=== PATIENT | male | born 1960 | race African-American/Black ===

== ENCOUNTER 2019-03-25 15:35 | Inpatient (IN) | payer MEDICAID, OTHER ==
[~2019-03-25] VITALS: Ht 165.1 cm; Wt 82.6 kg
[2019-03-25] MEDS ORDERED: SODIUM CHLORIDE 0.9% 1,000 ML IV ONE (16:31)
[2019-03-25] MEDS ORDERED: PANTOPRAZOLE SODIUM 40 MG/VIAL IV STA (16:31)
[2019-03-25 17:09] LABS: BASOPHILS % 0.8 % (0.0-2.0); EOSINOPHILS % 0.1 % (0.0-5.0); HEMATOCRIT. 31.1 % (42.0-52.0); LYMPHOCYTES % 26.8 % (20.0-50.0); MEAN CORPUSCULAR HEMOGLOBIN 39.3 pg (28.0-32.0); MEAN CORPUSCULAR VOLUME 111.6 fL (80.0-94.0); MEAN PLATELET VOLUME 10.6 fl (7.4-10.4); MONOCYTES % 11.8 % (2.0-8.0); NEUTROPHILS % 60.5 % (40.0-76.0); PLATELET 69 x1000/uL (130-400); RED BLOOD CELL COUNT 2.79 mill/uL (4.7-6.1)
[2019-03-25 17:11] LABS: CHLORIDE 108 mEq/L (98-107)
[2019-03-25 17:43] LABS: INR 1.4; PROTHROMBIN TIME 15.4 sec (9.6-11.0)
[2019-03-25 17:46] LABS: PLATELET ESTIMATE MARKEDLY DECREASED
[2019-03-25] MEDS ORDERED: IPRATROPIUM/ALBUTEROL 0.5-3(2.5)MG/3ML NEB HHN PRN (19:45)
[2019-03-25] MEDS ORDERED: CLONIDINE 0.1MG TABLET PO PRN (19:45)
[2019-03-25] MEDS ORDERED: DIPHENHYDRAMINE 50MG/ML VIAL IV PRN (19:45)
[2019-03-25 20:16] LABS: PHOSPHORUS 2.6 mg/dL (2.5-4.9)
[2019-03-25] MEDS: ONDANSETRON HCL 4MG/2ML INJ IV PRN (22:37)
[2019-03-25 22:41] VITALS: BP 130/77
[2019-03-25] MEDS ORDERED: SODIUM CHLORIDE 0.9% 1,000 ML IV SCH (23:00)
[2019-03-26] VITALS (17 sets, daily range): BP systolic 93–130; BP diastolic 55–79
[2019-03-26] MEDS ORDERED: OMEP20TA2 PO (00:04)
[2019-03-26] MEDS ORDERED: METO-539 PO (00:04)
[2019-03-26] MEDS ORDERED: HYDR-2510 MT (00:04)
[2019-03-26 00:18] LABS: HEMATOCRIT 25.4 % (42.0-52.0); HEMOGLOBIN 8.9 g/dL (14.0-18.0); MEAN CORPUSCULAR HEMOGLOBIN 37.4 pg (28.0-32.0); MEAN CORPUSCULAR VOLUME 107.4 fL (80.0-94.0); RED BLOOD CELL COUNT 2.37 mill/uL (4.7-6.1); RED CELL DISTRIBUTION WIDTH 19.8 % (11.6-14.6)
[2019-03-26 00:21] LABS: PLATELET 50 x1000/uL (130-400)
[2019-03-26] MEDS ORDERED: DEXTROSE 50% WATER 50ML SYRINGE IV PRN ×2 (02:45)
[2019-03-26 05:27] LABS: HEMATOCRIT. 22.9 % (42.0-52.0); HEMOGLOBIN. 8.1 g/dL (14.0-18.0); MEAN CORPUSCULAR HEMOGLOBIN 37.6 pg (28.0-32.0); MEAN CORPUSCULAR VOLUME 105.7 fL (80.0-94.0); MEAN PLATELET VOLUME 10.4 fl (7.4-10.4); PLATELET 53 x1000/uL (130-400); RED BLOOD CELL COUNT 2.17 mill/uL (4.7-6.1); RED CELL DISTRIBUTION WIDTH 20.1 % (11.6-14.6)
[2019-03-26 05:53] LABS: CHLORIDE 116 mEq/L (98-107)
[2019-03-26 06:00] LABS: HDL CHOLESTEROL 44 mg/dL (40-59); LDL CHOLESTEROL 40 mg/dL (5-100)
[2019-03-26] MEDS: ONDANSETRON HCL 4MG/2ML INJ IV PRN ×2 (07:02→21:41)
[2019-03-26] MEDS: PANTOPRAZOLE 80 MG in SODIUM CHLORIDE 0.9% 100 ML IV SCH ×2 (07:02→15:52)
[2019-03-26] MEDS: BLOOD SUGAR DIAGNOSTIC STRIP TEST SCH ×4 (07:20→21:00)
[2019-03-26] MEDS: INSULIN LISPRO 100 UNITS/ML SUBCUT SCH ×4 (07:20→21:00)
[2019-03-26] MEDS: SODIUM CHLORIDE 0.45% 1,000 ML IV SCH ×2 (11:25→20:54)
[2019-03-26 16:43] LABS: HEPATITIS B SURFACE ANTIGEN NEGATIVE
[2019-03-26 17:13] LABS: HEPATITIS A AB IGM NEGATIVE (NEGATIVE)
[2019-03-26 17:58] LABS: PLATELET ESTIMATE MARKEDLY DECREASED
[2019-03-26] MEDS: VANCOMYCIN HCL 1000 MG/20 ML ORAL PO SCH ×2 (18:15→23:28)
[2019-03-26 18:29] LABS: HEMATOCRIT. 22.2 % (42.0-52.0); HEMOGLOBIN. 7.7 g/dL (14.0-18.0); MEAN CORPUSCULAR HEMOGLOBIN 36.5 pg (28.0-32.0); MEAN CORPUSCULAR VOLUME 105.6 fL (80.0-94.0); MEAN PLATELET VOLUME 9.7 fl (7.4-10.4); PLATELET 89 x1000/uL (130-400); RED BLOOD CELL COUNT 2.11 mill/uL (4.7-6.1); RED CELL DISTRIBUTION WIDTH 19.6 % (11.6-14.6)
[2019-03-26 19:45] LABS: PLATELET ESTIMATE DECREASED
[2019-03-26 23:25] LABS: HEMATOCRIT. 21.7 % (42.0-52.0); HEMOGLOBIN. 7.5 g/dL (14.0-18.0); MEAN CORPUSCULAR VOLUME 106.8 fL (80.0-94.0); MEAN PLATELET VOLUME 10.2 fl (7.4-10.4); PLATELET 83 x1000/uL (130-400); RED BLOOD CELL COUNT 2.03 mill/uL (4.7-6.1); RED CELL DISTRIBUTION WIDTH 20.2 % (11.6-14.6)
[2019-03-27] VITALS (16 sets, daily range): BP systolic 93–148; BP diastolic 52–86
[2019-03-27 00:14] LABS: PLATELET ESTIMATE DECREASED
[2019-03-27] MEDS: PANTOPRAZOLE 80 MG in SODIUM CHLORIDE 0.9% 100 ML IV SCH ×3 (02:32→23:50)
[2019-03-27] MEDS: SODIUM CHLORIDE 0.45% 1,000 ML IV SCH ×4 (04:54→23:51)
[2019-03-27] MEDS: VANCOMYCIN HCL 1000 MG/20 ML ORAL PO SCH ×4 (06:01→23:50)
[2019-03-27] MEDS: BLOOD SUGAR DIAGNOSTIC STRIP TEST SCH ×4 (06:02→21:04)
[2019-03-27] MEDS: INSULIN LISPRO 100 UNITS/ML SUBCUT SCH ×4 (06:24→21:00)
[2019-03-27 06:53] LABS: MEAN CORPUSCULAR HEMOGLOBIN 37.1 pg (28.0-32.0); MEAN CORPUSCULAR VOLUME 106.3 fL (80.0-94.0); MEAN PLATELET VOLUME 10.8 fl (7.4-10.4); PLATELET 65 x1000/uL (130-400); RED BLOOD CELL COUNT 1.79 mill/uL (4.7-6.1); RED CELL DISTRIBUTION WIDTH 19.8 % (11.6-14.6)
[2019-03-27 07:42] LABS: HEMOGLOBIN. 6.6 g/dL (14.0-18.0)
[2019-03-27 07:43] LABS: HEMATOCRIT. 19.1 % (42.0-52.0)
[2019-03-27 09:48] LABS: CHLORIDE 117 mEq/L (98-107)
[2019-03-27 13:48] LABS: PLATELET ESTIMATE DECREASED
[2019-03-27 17:39] LABS: BASOPHILS % 0.7 % (0.0-2.0); EOSINOPHILS % 1.1 % (0.0-5.0); HEMOGLOBIN. 9.1 g/dL (14.0-18.0); LYMPHOCYTES % 26.4 % (20.0-50.0); MEAN CORPUSCULAR HEMOGLOBIN 36.4 pg (28.0-32.0); MEAN CORPUSCULAR VOLUME 104.2 fL (80.0-94.0); MEAN PLATELET VOLUME 10.5 fl (7.4-10.4); MONOCYTES % 11.4 % (2.0-8.0); NEUTROPHILS % 60.4 % (40.0-76.0); PLATELET 79 x1000/uL (130-400); RED BLOOD CELL COUNT 2.49 mill/uL (4.7-6.1); RED CELL DISTRIBUTION WIDTH 22.3 % (11.6-14.6)
[2019-03-27 18:03] LABS: PLATELET ESTIMATE DECREASED
[2019-03-27] MEDS ORDERED: IOHEXOL-300 100 ML BOTTLE ONE (22:32)
[2019-03-28] VITALS (11 sets, daily range): BP systolic 93–148; BP diastolic 62–82
[2019-03-28] MEDS: VANCOMYCIN HCL 1000 MG/20 ML ORAL PO SCH ×3 (05:36→18:00)
[2019-03-28] MEDS: INSULIN LISPRO 100 UNITS/ML SUBCUT SCH ×4 (05:36→21:00)
[2019-03-28] MEDS: BLOOD SUGAR DIAGNOSTIC STRIP TEST SCH ×4 (05:36→20:49)
[2019-03-28 07:02] LABS: BASOPHILS % 0.8 % (0.0-2.0); EOSINOPHILS % 2.5 % (0.0-5.0); HEMATOCRIT. 23.5 % (42.0-52.0); HEMOGLOBIN. 8.2 g/dL (14.0-18.0); LYMPHOCYTES % 31.7 % (20.0-50.0); MEAN CORPUSCULAR VOLUME 103.7 fL (80.0-94.0); MEAN PLATELET VOLUME 10.8 fl (7.4-10.4); MONOCYTES % 12.4 % (2.0-8.0); NEUTROPHILS % 52.6 % (40.0-76.0); PLATELET 63 x1000/uL (130-400); RED BLOOD CELL COUNT 2.27 mill/uL (4.7-6.1); RED CELL DISTRIBUTION WIDTH 21.5 % (11.6-14.6)
[2019-03-28 07:07] LABS: HIV SCREEN 4G Non Reactive (Non Reactive)
[2019-03-28 07:25] LABS: CHLORIDE 112 mEq/L (98-107)
[2019-03-28] MEDS ORDERED: POTASSIUM CHLORIDE INJ 40 MEQ in DEXT 5% WATER 500 ML IV NR (09:30)
[2019-03-28] MEDS: DEXT 5%/0.45% NACL 1000ML 1,000 ML IV SCH ×2 (10:10→16:19)
[2019-03-28] MEDS: PANTOPRAZOLE 80 MG in SODIUM CHLORIDE 0.9% 100 ML IV SCH (10:27)
[2019-03-28] MEDS ORDERED: LIDOCAINE HCL 1% 20ML VIAL (Pyxis) INJ ONE (13:14)
[2019-03-28 15:12] LABS: HEMATOCRIT 24.2 % (42.0-52.0); HEMOGLOBIN 8.2 g/dL (14.0-18.0)
[2019-03-28] MEDS ORDERED: MAGNESIUM 2 G PREMIX 50 ML IV SCH (17:00)
[2019-03-28] MEDS: PANTOPRAZOLE SODIUM 40 MG/VIAL IV SCH (17:13)
[2019-03-28] MEDS ORDERED: FENTANYL CITRATE/PF 50MCG/ML 2ML VIAL IV PRN (17:41)
[2019-03-28] MEDS ORDERED: MIDAZOLAM HCL 5 MG/5 ML VIAL IV PRN (17:42)
[2019-03-28] MEDS ORDERED: MIDAZOLAM HCL 5 MG/5 ML VIAL ONE (17:42)
[2019-03-28] MEDS ORDERED: DIAZEPAM 5 MG/ML 2ML CPJ ONE (17:43)
[2019-03-28] MEDS ORDERED: FENTANYL CITRATE/PF 50MCG/ML 2ML VIAL ONE (17:43)
[2019-03-28] MEDS ORDERED: DIAZEPAM 5 MG/ML 2ML CPJ IV PRN (17:44)
[2019-03-28] MEDS: PROPRANOLOL HCL 10MG TABLET PO SCH (20:48)
[2019-03-28] MEDS ORDERED: MAGNESIUM 2 G PREMIX 50 ML IV NR (21:00)
[2019-03-28] MEDS ORDERED: PHYTONADIONE 10 MG in DEXTROSE 5% WATER 49 ML IV NR (21:00)
[2019-03-29] VITALS (11 sets, daily range): BP systolic 95–131; BP diastolic 47–79
[2019-03-29] MEDS: DEXT 5%/0.45% NACL 1000ML 1,000 ML IV SCH ×4 (00:39→23:32)
[2019-03-29] MEDS: VANCOMYCIN HCL 1000 MG/20 ML ORAL PO SCH ×5 (00:40→23:04)
[2019-03-29] MEDS: BLOOD SUGAR DIAGNOSTIC STRIP TEST SCH ×4 (05:50→20:29)
[2019-03-29] MEDS: INSULIN LISPRO 100 UNITS/ML SUBCUT SCH ×4 (05:50→20:29)
[2019-03-29] MEDS: PANTOPRAZOLE SODIUM 40 MG/VIAL IV SCH ×2 (08:47→17:19)
[2019-03-29] MEDS: PROPRANOLOL HCL 10MG TABLET PO SCH ×2 (08:47→20:26)
[2019-03-29 09:56] LABS: BASOPHILS % 0.8 % (0.0-2.0); HEMATOCRIT. 24.7 % (42.0-52.0); HEMOGLOBIN. 8.4 g/dL (14.0-18.0); LYMPHOCYTES % 28.7 % (20.0-50.0); MEAN CORPUSCULAR HEMOGLOBIN 36.2 pg (28.0-32.0); MEAN CORPUSCULAR VOLUME 106.2 fL (80.0-94.0); MEAN PLATELET VOLUME 11.1 fl (7.4-10.4); MONOCYTES % 7.8 % (2.0-8.0); NEUTROPHILS % 59.7 % (40.0-76.0); PLATELET 75 x1000/uL (130-400); RED BLOOD CELL COUNT 2.33 mill/uL (4.7-6.1)
[2019-03-29 10:01] LABS: CHLORIDE 108 mEq/L (98-107); INR 1.3; PROTHROMBIN TIME 13.6 sec (9.6-11.0)
[2019-03-29] MEDS ORDERED: POTASSIUM CHLORIDE 20MEQ TABLET SR PO NR (17:00)
[2019-03-29] MEDS ORDERED: KCL 20MEQ/100ML PREMIX 100 ML IV SCH (18:00)
[2019-03-29] MEDS ORDERED: MAGNESIUM 4 G PREMIX 100 ML IV SCH (18:00)
[2019-03-30] VITALS (8 sets, daily range): BP systolic 94–127; BP diastolic 45–77
[2019-03-30] MEDS: VANCOMYCIN HCL 1000 MG/20 ML ORAL PO SCH ×2 (05:09→11:40)
[2019-03-30] MEDS: INSULIN LISPRO 100 UNITS/ML SUBCUT SCH ×2 (05:50→11:24)
[2019-03-30] MEDS: BLOOD SUGAR DIAGNOSTIC STRIP TEST SCH ×2 (05:50→11:24)
[2019-03-30 06:46] LABS: CHLORIDE 109 mEq/L (98-107)
[2019-03-30] MEDS: DEXT 5%/0.45% NACL 1000ML 1,000 ML IV SCH (08:30)
[2019-03-30] MEDS: PANTOPRAZOLE SODIUM 40 MG/VIAL IV SCH (08:46)
[2019-03-30] MEDS: PROPRANOLOL HCL 10MG TABLET PO SCH (08:48)
[2019-03-30] MEDS ORDERED: POTASSIUM CHLORIDE 20MEQ TABLET SR PO SCH (09:00)
[2019-03-30] MEDS ORDERED: PANT40TA4 MT (10:00)
[2019-03-30] MEDS ORDERED: VANJ5 PO (10:00)
[2019-03-30] MEDS ORDERED: PROP10TA10 PO (10:00)
[2019-03-30 11:18] LABS: HEMOGLOBIN. 8.6 g/dL (14.0-18.0); MEAN CORPUSCULAR HEMOGLOBIN 36.6 pg (28.0-32.0); MEAN CORPUSCULAR VOLUME 106.2 fL (80.0-94.0); MEAN PLATELET VOLUME 11.3 fl (7.4-10.4); RED BLOOD CELL COUNT 2.35 mill/uL (4.7-6.1); RED CELL DISTRIBUTION WIDTH 20.7 % (11.6-14.6)
[2019-03-30 13:11] LABS: PLATELET ESTIMATE DECREASED
[2019-03-30 13:14] LABS: PLATELET 52 x1000/uL (130-400)
== END 2019-03-30 14:55 | disposition home or self-care (01) | DRG 253 ==
LOC: ER 15:35 → 3WST 15:36 → EDBEDREQ 16:37 → EDBEDREQTM 18:14 → EDBEDREQSVC 18:14 → ENRESERV 21:00 → CANRESERV 21:00 → ENRESERV 21:44
PROVIDERS: ADMIT Internal Medicine; ATTEND Internal Medicine
PROC: 30233N1 Transfusion of Nonautologous Red Blood Cells into Peripheral Vein, Percutaneous Approach (ICD-10-PCS; 2019-03-25)
PROC: 30233R1 Transfusion of Nonautologous Platelets into Peripheral Vein, Percutaneous Approach (ICD-10-PCS; 2019-03-26)
PROC: 0DB98ZX Excision of Duodenum, Via Natural or Artificial Opening Endoscopic, Diagnostic (ICD-10-PCS; principal; 2019-03-28)
PROC: 0DB68ZX Excision of Stomach, Via Natural or Artificial Opening Endoscopic, Diagnostic (ICD-10-PCS; 2019-03-28)
PROC: 02HV33Z Insertion of Infusion Device into Superior Vena Cava, Percutaneous Approach (ICD-10-PCS; 2019-03-28)
PROC: B548ZZA Ultrasonography of Superior Vena Cava, Guidance (ICD-10-PCS; 2019-03-28)
DX: K92.2 Gastrointestinal hemorrhage, unspecified (principal); I21.4 Non-ST elevation (NSTEMI) myocardial infarction; J90 Pleural effusion, not elsewhere classified; E46 Unspecified protein-calorie malnutrition; E87.0 Hyperosmolality and hypernatremia; D68.9 Coagulation defect, unspecified; D69.59 Other secondary thrombocytopenia; I42.9 Cardiomyopathy, unspecified; K70.30 Alcoholic cirrhosis of liver without ascites; E86.0 Dehydration; D53.9 Nutritional anemia, unspecified; I10 Essential (primary) hypertension; F17.210 Nicotine dependence, cigarettes, uncomplicated; I11.9 Hypertensive heart disease without heart failure; F10.20 Alcohol dependence, uncomplicated; G89.29 Other chronic pain; B96.89 Other specified bacterial agents as the cause of diseases classified elsewhere; K06.8 Other specified disorders of gingiva and edentulous alveolar ridge; K29.70 Gastritis, unspecified, without bleeding; K31.89 Other diseases of stomach and duodenum; K76.6 Portal hypertension; Q63.2 Ectopic kidney; I25.2 Old myocardial infarction; Z79.899 Other long term (current) drug therapy; Z68.30 Body mass index [BMI] 30.0-30.9, adult; Z88.0 Allergy status to penicillin; K70.31 Alcoholic cirrhosis of liver with ascites; I85.10 Secondary esophageal varices without bleeding
CPT/HCPCS: 36415; 71045; 74176; 74178; 76700; 76937; 80048; 80053; 80061; 80076; 82105; 82140; 82248; 82270; 82728; 82962; 82977; 83540; 83550; 83615; 83735; 83880; 84100; 84484; 85014; 85018; 85025; 85027; 86705; 86709; 86803; 86850; 86900; 86920; 87340; 87389; 87493; 88305; 88313; 93005; 93306; 93970; 99291; C1725; C9113; J1200; J2250; J2405; J3010; J3370; J3430; J3475; J3480; J3490; J7030; J7050; J7060; P9021; P9034; Q9967

== ENCOUNTER 2019-04-01 01:37 | Emergency (ER) | payer MEDICAID ==
[~2019-04-01] VITALS: Ht 165.1 cm; Wt 73.0 kg
[~2019-04-01 01:37] MED LIST: PANT40TA4 MT; PROP10TA10 PO; VANJ5 PO
[2019-04-01 06:30] VITALS: BP 125/77
== END 2019-04-01 06:33 | disposition home or self-care (01) ==
LOC: ER 01:37
DX: R60.0 Localized edema (principal); K74.60 Unspecified cirrhosis of liver; I10 Essential (primary) hypertension; Z88.0 Allergy status to penicillin; Z79.899 Other long term (current) drug therapy
CPT/HCPCS: 93970; 99284

== ENCOUNTER 2020-11-30 16:27 | Inpatient (IN) | payer BC, MEDICAID ==
[~2020-11-30] VITALS: Ht 162.6 cm; Wt 111.1 kg
[~2020-11-30 16:27] MED LIST changes: +ETOMIDATE 2MG/ML 10ML VIAL IV ONE; -PANT40TA4 MT; +PANT40TA51 MT; +SODIUM CHLORIDE 0.9% 10ML VIAL ONE; +VECURONIUM BROMIDE 10 MG/VIAL IV ONE
[2020-11-30] MEDS ORDERED: PANTOPRAZOLE SODIUM 40 MG/VIAL IV STA (17:26)
[2020-11-30] MEDS ORDERED: OCTREOTIDE 1,000 MCG in SODIUM CHLORIDE 0.9% 100 ML IV STA (17:26)
[2020-11-30] MEDS ORDERED: PANTOPRAZOLE 80 MG in SODIUM CHLORIDE 0.9% 100 ML IV STA (17:26)
[2020-11-30] MEDS ORDERED: OCTREOTIDE ACETATE 50 MCG/ML 1ML IV STA (17:26)
[2020-11-30] MEDS ORDERED: ONDANSETRON HCL 4MG/2ML INJ IV ONE (17:30)
[2020-11-30] MEDS ORDERED: SODIUM CHLORIDE 0.9% 1,000 ML IV ONE (17:30)
[2020-11-30 17:39] LABS: HEMATOCRIT. 24.4 % (42.0-52.0); HEMOGLOBIN. 8.2 g/dL (14.0-18.0); MEAN CORPUSCULAR VOLUME 113.7 fL (80.0-94.0); MEAN PLATELET VOLUME 9.5 fl (7.4-10.4); PLATELET 118 x1000/uL (130-400); RED BLOOD CELL COUNT 2.15 mill/uL (4.7-6.1); RED CELL DISTRIBUTION WIDTH 16.6 % (11.6-14.6)
[2020-11-30 17:46] LABS: CHLORIDE 105 mEq/L (98-107)
[2020-11-30 17:50] LABS: ETHANOL BLOOD < 10 mg/dL; INR 1.9; PROTHROMBIN TIME 19.3 sec (9.6-11.0)
[2020-11-30] MEDS ORDERED: SODIUM BICARBONATE 8.4% 1 MEQ/ML 50ML SYR IV NR ×2 (18:00→19:30)
[2020-11-30] MEDS ORDERED: CALCIUM CHLORIDE 1GM/10ML SYR IV NR ×2 (18:00→19:30)
[2020-11-30] MEDS ORDERED: DEXTROSE 50% WATER 50ML SYRINGE IV ONE ×2 (18:00→18:15)
[2020-11-30] MEDS ORDERED: ALBUTEROL (0.083%) 2.5MG/3ML NEB HHN NR ×2 (18:00→19:30)
[2020-11-30 18:09] LABS: PLATELET ESTIMATE DECREASED
[2020-11-30] MEDS ORDERED: DEXTROSE 50% WATER 50ML SYRINGE IV NR ×2 (18:15→19:30)
[2020-11-30] MEDS ORDERED: LACTULOSE 20G/30ML UDC PO NR (18:45)
[2020-11-30] MEDS ORDERED: METRONIDAZOLE 500 MG PREMIX 100 ML IV NR (18:45)
[2020-11-30] MEDS ORDERED: CEFTRIAXONE 1 G PREMIX 50 ML IV ONE (18:45)
[2020-11-30] MEDS ORDERED: SODIUM CHLORIDE 0.9% 1000ML BAG (SEPSIS BOLUS) IV ONE (18:45)
[2020-11-30 19:10] LABS: CHLORIDE 107 mEq/L (98-107)
[2020-11-30] MEDS ORDERED: INSULIN REGULAR (HUMULIN R) 300UNITS/3ML VIAL IV NR (19:30)
[2020-11-30] MEDS ORDERED: MVI, ADULT NO.1 10 ML, FOLIC ACID 1 MG, THIAMINE HCL 100 MG in SODIUM CHLORIDE 0.9% 1,0... IV SCH (20:15)
[2020-11-30] MEDS ORDERED: SODIUM CHLORIDE 0.9% 1,000 ML IV SCH (20:15)
[2020-11-30] MEDS ORDERED: OCTREOTIDE 1000MCG in SODIUM CHLORIDE 0.9% 100ML IV PRN (20:30)
[2020-11-30] MEDS: LEVOFLOXACIN 500MG PREMIX 100 ML IV SCH (20:30)
[2020-11-30 20:39] LABS: HEMATOCRIT 21.9 % (42.0-52.0); MEAN CORPUSCULAR HEMOGLOBIN 37.6 pg (28.0-32.0); MEAN CORPUSCULAR VOLUME 118.1 fL (80.0-94.0); PLATELET 102 x1000/uL (130-400); RED BLOOD CELL COUNT 1.86 mill/uL (4.7-6.1); RED CELL DISTRIBUTION WIDTH 16.8 % (11.6-14.6)
[2020-11-30 21:00] LABS: HEPATITIS B SURFACE ANTIGEN NEGATIVE
[2020-11-30] MEDS ORDERED: THIAMINE HCL 100 MG/1 ML 2ML VIAL IV SCH (21:00)
[2020-11-30] MEDS ORDERED: MIDAZOLAM HCL 2 MG/2 ML VIAL IV ONE (21:00)
[2020-11-30] MEDS ORDERED: SODIUM CHLORIDE 0.9% 500 ML IV ONE (22:00)
[2020-11-30] MEDS: THIAMINE HCL 200 MG in SODIUM CHLORIDE 0.9% 100 ML IV SCH (22:10)
[2020-11-30 22:16] LABS: CHLORIDE 109 mEq/L (98-107)
[2020-11-30] MEDS ORDERED: DEXTROSE 50% WATER 50ML SYRINGE IV SCH (22:43)
[2020-11-30] MEDS ORDERED: SODIUM BICARBONATE 8.4% 1 MEQ/ML 50ML SYR IV SCH (22:45)
[2020-11-30] MEDS ORDERED: NOREPINEPHRINE 8MG/250ML PMX 250 ML IV ONE (22:45)
[2020-11-30 22:54] LABS: BG BASE EXCESS -9.1 mmol/L (-2.0-2.0); BG CARBOXYHEMOGLOBIN 0.7 % (0.5-1.5); BG DEOXYHEMOGLOBIN 16.1 % (0.0-5.0); BG FRACTION INSPIRED OXYGEN 36; BG HCO3 ACT 15.8 mmol/L (22.0-26.0); BG METHEMOGLOBIN 0.7 % (0.0-1.5); BG OXYGEN SATURATION 83.7 % (92.0-98.5); BG OXYHEMOGLOBIN 82.5 % (94.0-97.0); BG PCO2 29.4 mmHg (35.0-45.0); BG PH 7.347 (7.350-7.450); BG PO2 60.9 mmHg (75.0-100.0); BG SAMPLE SITE RIGHT RADIAL; BG TOTAL HEMOGLOBIN 6.1 g/dL (12.0-18.0); BG VENT MODE NASAL CANNULA
[2020-11-30] MEDS ORDERED: INSULIN REGULAR (HUMULIN R) 300UNITS/3ML VIAL IV SCH (22:56)
[2020-11-30] MEDS ORDERED: CALCIUM GLUCONATE 100MG/ML 10ML VIAL IV SCH (23:00)
[2020-11-30] MEDS ORDERED: PROPOFOL 10MG/ML 100ML 100 ML IV ONE (23:15)
[2020-11-30] MEDS ORDERED: NOREPINEPHRINE 8 MG in DEXTROSE 5% WATER 250 ML IV ONE (23:15)
[2020-11-30] MEDS ORDERED: NOREPINEPHRINE 8 MG in DEXTROSE 5% WATER 250 ML IV PRN (23:15)
[2020-12-01] VITALS (91 sets, daily range): BP systolic 79–144; BP diastolic 34–90
[2020-12-01] MEDS ORDERED: NOREPINEPHRINE 8MG/250ML PMX 250 ML IV STA (01:55)
[2020-12-01] MEDS ORDERED: SODIUM CHLORIDE 0.9% 1,000 ML IV ONE (02:00)
[2020-12-01] MEDS ORDERED: METRONIDAZOLE 500 MG PREMIX 100 ML IV SCH (02:00)
[2020-12-01 02:03] LABS: BG BASE EXCESS -3.6 mmol/L (-2.0-2.0); BG CARBOXYHEMOGLOBIN 0.8 % (0.5-1.5); BG DEOXYHEMOGLOBIN 0.8 % (0.0-5.0); BG FRACTION INSPIRED OXYGEN 100; BG HCO3 ACT 22.3 mmol/L (22.0-26.0); BG METHEMOGLOBIN 0.9 % (0.0-1.5); BG OXYGEN SATURATION 99.2 % (92.0-98.5); BG OXYHEMOGLOBIN 97.5 % (94.0-97.0); BG PCO2 45.5 mmHg (35.0-45.0); BG PH 7.309 (7.350-7.450); BG PO2 345.4 mmHg (75.0-100.0); BG SAMPLE SITE LEFT FEMORAL; BG TOTAL HEMOGLOBIN 6.4 g/dL (12.0-18.0); BG VENT MODE VENT - AC
[2020-12-01 03:47] LABS: CHLORIDE 115 mEq/L (98-107)
[2020-12-01] MEDS ORDERED: VANCOMYCIN 1500MG in DEXTROSE 5% WATER 250ML IV SCH ×2 (04:00→13:00)
[2020-12-01] MEDS ORDERED: NOREPINEPHRINE 8MG/250ML PMX 250 ML IV SCH (05:00)
[2020-12-01] MEDS ORDERED: NOREPINEPHRINE 8 MG in DEXTROSE 5% WATER 250 ML IV PRN (05:15)
[2020-12-01] MEDS: NOREPINEPHRINE 32 MG in DEXT 5% WATER 218 ML IV PRN (06:21)
[2020-12-01] MEDS ORDERED: DEXTROSE 50% WATER 50ML SYRINGE IV ONE (07:00)
[2020-12-01] MEDS ORDERED: DEXTROSE 50% WATER 50ML SYRINGE IV NR (07:15)
[2020-12-01] MEDS: DEXT 5%/LACTATED RINGERS 1,000 ML IV SCH ×3 (07:17→19:52)
[2020-12-01] MEDS ORDERED: CALCIUM CHLORIDE 1,000 MG in DEXT 5% WATER 90 ML IV SCH (07:30)
[2020-12-01 07:50] LABS: BG BASE EXCESS -10.7 mmol/L (-2.0-2.0); BG CARBOXYHEMOGLOBIN 0.3 % (0.5-1.5); BG DEOXYHEMOGLOBIN 1.4 % (0.0-5.0); BG FRACTION INSPIRED OXYGEN 50; BG HCO3 ACT 12.3 mmol/L (22.0-26.0); BG METHEMOGLOBIN 0.7 % (0.0-1.5); BG OXYGEN SATURATION 98.6 % (92.0-98.5); BG OXYHEMOGLOBIN 97.6 % (94.0-97.0); BG PCO2 18.9 mmHg (35.0-45.0); BG PEEP (cmH2O) 0 cmH2O; BG PH 7.433 (7.350-7.450); BG PO2 197.5 mmHg (75.0-100.0); BG SAMPLE SITE RIGHT RADIAL; BG TOTAL HEMOGLOBIN 6.9 g/dL (12.0-18.0); BG VENT MODE VENT - AC/VC
[2020-12-01 07:59] LABS: MEAN CORPUSCULAR HEMOGLOBIN 33.3 pg (28.0-32.0); MEAN CORPUSCULAR VOLUME 101.9 fL (80.0-94.0); MEAN PLATELET VOLUME 9.9 fl (7.4-10.4); PLATELET 62 x1000/uL (130-400); RED CELL DISTRIBUTION WIDTH 22.8 % (11.6-14.6)
[2020-12-01] MEDS ORDERED: SODIUM BICARBONATE 8.4% 1 MEQ/ML 50ML SYR IV NR (08:00)
[2020-12-01] MEDS ORDERED: LACTULOSE 20G/30ML UDC PO PRN (08:00)
[2020-12-01] MEDS: BLOOD SUGAR DIAGNOSTIC STRIP TEST SCH ×4 (08:21→20:00)
[2020-12-01 08:24] LABS: HEMATOCRIT. 20.4 % (42.0-52.0); HEMOGLOBIN. 6.7 g/dL (14.0-18.0)
[2020-12-01] MEDS ORDERED: PANTOPRAZOLE SODIUM 40 MG/VIAL IV SCH (09:00)
[2020-12-01 09:27] LABS: BASOPHILS % 0.9 % (0.0-2.0); HEMATOCRIT. 25.9 % (42.0-52.0); HEMOGLOBIN. 8.8 g/dL (14.0-18.0); LYMPHOCYTES % 12.5 % (20.0-50.0); MEAN CORPUSCULAR HEMOGLOBIN 32.5 pg (28.0-32.0); MEAN CORPUSCULAR VOLUME 95.4 fL (80.0-94.0); MEAN PLATELET VOLUME 9.5 fl (7.4-10.4); MONOCYTES % 10.7 % (2.0-8.0); NEUTROPHILS % 75.9 % (40.0-76.0); PLATELET 58 x1000/uL (130-400); RED BLOOD CELL COUNT 2.71 mill/uL (4.7-6.1); RED CELL DISTRIBUTION WIDTH 20.3 % (11.6-14.6)
[2020-12-01] MEDS ORDERED: CALCIUM CHLORIDE 1,000 MG in DEXT 5% WATER 90 ML IV NR (10:00)
[2020-12-01] MEDS ORDERED: PROPOFOL 10MG/ML 100ML 100 ML IV PRN (11:45)
[2020-12-01] MEDS ORDERED: FENTANYL CITRATE/PF 50MCG/ML 2ML VIAL ONE (12:00)
[2020-12-01] MEDS ORDERED: MIDAZOLAM HCL 5 MG/5 ML VIAL ONE (12:00)
[2020-12-01 12:22] LABS: HEMATOCRIT 31.3 % (42.0-52.0); HEMOGLOBIN 10.1 g/dL (14.0-18.0)
[2020-12-01 12:32] LABS: INR 2.1; PROTHROMBIN TIME 21.4 sec (9.6-11.0)
[2020-12-01 13:02] LABS: BG BASE EXCESS -4.5 mmol/L (-2.0-2.0); BG CARBOXYHEMOGLOBIN 0.3 % (0.5-1.5); BG DEOXYHEMOGLOBIN 2.2 % (0.0-5.0); BG FRACTION INSPIRED OXYGEN 50; BG HCO3 ACT 17.1 mmol/L (22.0-26.0); BG METHEMOGLOBIN 0.3 % (0.0-1.5); BG OXYGEN SATURATION 97.8 % (92.0-98.5); BG OXYHEMOGLOBIN 97.2 % (94.0-97.0); BG PCO2 21.7 mmHg (35.0-45.0); BG PH 7.514 (7.350-7.450); BG PO2 111.8 mmHg (75.0-100.0); BG SAMPLE SITE RIGHT RADIAL; BG TOTAL RESPIRATORY RATE 30 b/min; BG VENT MODE VENT - AC
[2020-12-01 13:13] LABS: PLATELET ESTIMATE DECREASED
[2020-12-01] MEDS: PHENYLEPHRINE 100 MG in DEXT 5% WATER 240 ML IV PRN ×2 (14:35→22:15)
[2020-12-01] MEDS ORDERED: LEVOFLOXACIN 500MG PREMIX 100 ML IV SCH (15:45)
[2020-12-01] MEDS ORDERED: VANCOMYCIN 1250MG in DEXTROSE 5% WATER 250ML IV SCH (16:00)
[2020-12-01] MEDS: FENTANYL CITRATE/PF 2,500 MCG in SODIUM CHLORIDE 0.9% 200 ML IV PRN (16:34)
[2020-12-01] MEDS: PANTOPRAZOLE SODIUM 40 MG/VIAL IV SCH (17:00)
[2020-12-01] MEDS: OCTREOTIDE 1000MCG in SODIUM CHLORIDE 0.9% 100ML IV SCH (18:39)
[2020-12-01] MEDS ORDERED: CEFTRIAXONE 1 G PREMIX 50 ML IV SCH (20:00)
[2020-12-01 20:56] LABS: CLARITY URINE TURBID (CLEAR); COLOR URINE DARK YELLOW (YELLOW); KETONES URINE TRACE (NEGATIVE); LEUKOCYTE ESTERASE URINE 1+ (NEGATIVE); NITRITE URINE NEGATIVE (NEGATIVE); OCCULT BLOOD URINE 3+ (NEGATIVE); PROTEIN URINE 2+ (NEGATIVE); SPECIFIC GRAVITY URINE 1.019 (1.005-1.030); UROBILINOGEN URINE 0.2 E.U./dL (0.2-1.0)
[2020-12-01 21:20] LABS: *AMPHETAMINES SCREEN URINE NEGATIVE (NEGATIVE); *BARBITURATES SCREEN URINE NEGATIVE (NEGATIVE); *BENZODIAZEPINES SCREEN URINE PRESUMTIVE POSITIVE (NEGATIVE); *COCAINE SCREEN URINE NEGATIVE (NEGATIVE); METHADONE URINE SCREEN NEGATIVE (NEGATIVE); OPIATES URINE SCREEN NEGATIVE (NEGATIVE)
[2020-12-01 21:21] LABS: CANNABINOID URINE SCREEN NEGATIVE (NEGATIVE); PHENCYCLIDINE URINE SCREEN NEGATIVE (NEGATIVE)
[2020-12-01] MEDS: THIAMINE HCL 200 MG in SODIUM CHLORIDE 0.9% 100 ML IV SCH (21:40)
[2020-12-01] MEDS: LEVOFLOXACIN 500MG PREMIX 100 ML IV SCH (21:40)
[2020-12-02] VITALS (88 sets, daily range): BP systolic 67–119; BP diastolic 17–72
[2020-12-02] MEDS: DEXT 5%/LACTATED RINGERS 1,000 ML IV SCH ×4 (02:32→23:15)
[2020-12-02] MEDS: BLOOD SUGAR DIAGNOSTIC STRIP TEST SCH ×7 (04:00→23:56)
[2020-12-02 04:35] LABS: HEMATOCRIT. 27.9 % (42.0-52.0); HEMOGLOBIN. 9.4 g/dL (14.0-18.0); MEAN CORPUSCULAR HEMOGLOBIN 32.7 pg (28.0-32.0); MEAN CORPUSCULAR VOLUME 97.2 fL (80.0-94.0); MEAN PLATELET VOLUME 10.9 fl (7.4-10.4); PLATELET 51 x1000/uL (130-400); RED BLOOD CELL COUNT 2.88 mill/uL (4.7-6.1); RED CELL DISTRIBUTION WIDTH 19.4 % (11.6-14.6)
[2020-12-02] MEDS: NOREPINEPHRINE 32 MG in DEXT 5% WATER 218 ML IV PRN ×2 (05:46→15:30)
[2020-12-02] MEDS: PHENYLEPHRINE 100 MG in DEXT 5% WATER 240 ML IV PRN ×3 (05:47→21:08)
[2020-12-02] MEDS: DEXTROSE 50% WATER 50ML SYRINGE IV PRN ×3 (06:07→21:07)
[2020-12-02] MEDS ORDERED: SODIUM CHLORIDE 0.9% 1000ML BAG (SEPSIS BOLUS) IV ONE ×4 (06:45→15:30)
[2020-12-02] MEDS: VASOPRESSIN 20 UNIT in SODIUM CHLORIDE 0.9% 99 ML IV PRN ×3 (07:11→22:44)
[2020-12-02 08:20] LABS: BG CARBOXYHEMOGLOBIN 0.2 % (0.5-1.5); BG DEOXYHEMOGLOBIN 5.9 % (0.0-5.0); BG FRACTION INSPIRED OXYGEN 50; BG HCO3 ACT 13.8 mmol/L (22.0-26.0); BG METHEMOGLOBIN 0.6 % (0.0-1.5); BG OXYGEN SATURATION 94.1 % (92.0-98.5); BG OXYHEMOGLOBIN 93.3 % (94.0-97.0); BG PCO2 23.9 mmHg (35.0-45.0); BG PO2 75.2 mmHg (75.0-100.0); BG SAMPLE SITE RIGHT RADIAL; BG VENT MODE VENT - AC
[2020-12-02] MEDS: MIDODRINE HCL 2.5MG TABLET GT SCH ×3 (08:24→16:24)
[2020-12-02] MEDS: PANTOPRAZOLE SODIUM 40 MG/VIAL IV SCH ×2 (08:25→16:24)
[2020-12-02] MEDS ORDERED: SODIUM CHLORIDE 0.9% 500 ML IV SCH ×3 (09:30→15:30)
[2020-12-02] MEDS ORDERED: SODIUM BICARBONATE 8.4% 1 MEQ/ML 50ML SYR IV NR (10:00)
[2020-12-02 10:21] LABS: NUCLEATED RED BLOOD CELLS 5 /100 WBC; PLATELET ESTIMATE DECREASED
[2020-12-02] MEDS ORDERED: ALBUMIN HUMAN 12.5G/250ML (5%) IV NR (10:45)
[2020-12-02] MEDS ORDERED: VANCOMYCIN 500 MG PREMIX 100 ML IV SCH (12:00)
[2020-12-02] MEDS ORDERED: METRONIDAZOLE 500 MG PREMIX 100 ML IV SCH (12:00)
[2020-12-02 14:09] LABS: BG BASE EXCESS -9.9 mmol/L (-2.0-2.0); BG CARBOXYHEMOGLOBIN 0.5 % (0.5-1.5); BG DEOXYHEMOGLOBIN 9.9 % (0.0-5.0); BG HCO3 ACT 14.1 mmol/L (22.0-26.0); BG METHEMOGLOBIN 0.7 % (0.0-1.5); BG OXYHEMOGLOBIN 88.9 % (94.0-97.0); BG PCO2 24.4 mmHg (35.0-45.0); BG PO2 64.6 mmHg (75.0-100.0); BG SAMPLE SITE RIGHT RADIAL; BG TOTAL HEMOGLOBIN 7.7 g/dL (12.0-18.0); BG VENT MODE VENT - AC
[2020-12-02] MEDS: MEROPENEM 500MG in NORMAL SALINE 50ML IV SCH (14:45)
[2020-12-02] MEDS: OCTREOTIDE 1000MCG in SODIUM CHLORIDE 0.9% 100ML IV SCH (15:06)
[2020-12-02] MEDS ORDERED: ALBUMIN HUMAN 12.5G/250ML (5%) IV ONE (15:30)
[2020-12-02] MEDS ORDERED: METOCLOPRAMIDE HCL 10MG/2ML VIAL IV NR (15:45)
[2020-12-02] MEDS ORDERED: OCTREOTIDE 1,000 MCG in SODIUM CHLORIDE 0.9% 100 ML IV SCH (17:00)
[2020-12-02] MEDS ORDERED: CALCIUM GLUCONATE 100MG/ML 10ML VIAL IV NR (18:00)
[2020-12-02] MEDS ORDERED: CALCIUM 1250MG TABLET (500MG ELEMENTAL CALCIUM) PO NR (18:00)
[2020-12-02 18:29] LABS: VITAMIN B12 SERUM > 2000.0 pg/mL (211-911)
[2020-12-02] MEDS: THIAMINE HCL 500 MG in SODIUM CHLORIDE 0.9% 95 ML IV SCH (21:08)
[2020-12-02] MEDS: RIFAXIMIN 550 MG TABLET PO SCH (21:11)
[2020-12-02] MEDS ORDERED: FOLIC ACID 1 MG, THIAMINE HCL 100 MG, MVI, ADULT NO.1 10 ML in DEXTROSE 5% WATER 1,000 ML IV ONE (22:00)
[2020-12-02] MEDS: LACTULOSE 20G/30ML UDC PO SCH (22:00)
[2020-12-03] VITALS (85 sets, daily range): BP systolic 75–114; BP diastolic 45–64
[2020-12-03] MEDS: DEXTROSE 50% WATER 50ML SYRINGE IV PRN ×8 (00:06→21:45)
[2020-12-03] MEDS: NOREPINEPHRINE 32 MG in DEXT 5% WATER 218 ML IV PRN ×3 (01:14→22:35)
[2020-12-03] MEDS: BLOOD SUGAR DIAGNOSTIC STRIP TEST SCH ×5 (04:00→20:00)
[2020-12-03] MEDS: PHENYLEPHRINE 100 MG in DEXT 5% WATER 240 ML IV PRN ×3 (04:41→19:17)
[2020-12-03] MEDS: DEXT 5%/LACTATED RINGERS 1,000 ML IV SCH (05:00)
[2020-12-03] MEDS: LACTULOSE 20G/30ML UDC PO SCH ×3 (05:10→21:39)
[2020-12-03 06:33] LABS: BASOPHILS % 0.6 % (0.0-2.0); EOSINOPHILS % 0.7 % (0.0-5.0); HEMATOCRIT. 27.9 % (42.0-52.0); HEMOGLOBIN. 9.3 g/dL (14.0-18.0); MEAN CORPUSCULAR HEMOGLOBIN 33.2 pg (28.0-32.0); MEAN PLATELET VOLUME 12.2 fl (7.4-10.4); MONOCYTES % 7.2 % (2.0-8.0); NEUTROPHILS % 82.5 % (40.0-76.0); RED BLOOD CELL COUNT 2.82 mill/uL (4.7-6.1)
[2020-12-03] MEDS ORDERED: FOLIC ACID 1 MG, THIAMINE HCL 100 MG, MVI, ADULT NO.1 10 ML in DEXTROSE 5% WATER 1,000 ML IV ONE (07:15)
[2020-12-03 07:39] LABS: PLATELET 31 x1000/uL (130-400)
[2020-12-03] MEDS ORDERED: CALCIUM CHLORIDE 1,000 MG in DEXT 5% WATER 90 ML IV NR (08:30)
[2020-12-03] MEDS: RIFAXIMIN 550 MG TABLET PO SCH ×2 (09:04→21:39)
[2020-12-03] MEDS: PANTOPRAZOLE SODIUM 40 MG/VIAL IV SCH ×2 (09:04→17:01)
[2020-12-03] MEDS: MIDODRINE HCL 2.5MG TABLET GT SCH (09:05)
[2020-12-03] MEDS ORDERED: ALBUMIN HUMAN 12.5GM/50ML (25%) IV NR (09:30)
[2020-12-03] MEDS: OCTREOTIDE 1000MCG in SODIUM CHLORIDE 0.9% 100ML IV SCH (10:57)
[2020-12-03] MEDS ORDERED: LEVOFLOXACIN 250MG PREMIX 50 ML IV SCH (11:00)
[2020-12-03] MEDS ORDERED: SODIUM BICARBONATE 100 MEQ in DEXTROSE 5% WATER 1,000 ML IV SCH (12:00)
[2020-12-03] MEDS ORDERED: SODIUM CHLORIDE 0.9% 1000ML BAG (SEPSIS BOLUS) IV SCH (12:30)
[2020-12-03 12:39] LABS: BG CARBOXYHEMOGLOBIN 0.3 % (0.5-1.5); BG DEOXYHEMOGLOBIN 9.3 % (0.0-5.0); BG FRACTION INSPIRED OXYGEN 50; BG HCO3 ACT 15.1 mmol/L (22.0-26.0); BG METHEMOGLOBIN 0.3 % (0.0-1.5); BG OXYGEN SATURATION 90.6 % (92.0-98.5); BG OXYHEMOGLOBIN 90.1 % (94.0-97.0); BG PCO2 23.6 mmHg (35.0-45.0); BG PH 7.424 (7.350-7.450); BG PO2 58.9 mmHg (75.0-100.0); BG SAMPLE SITE RIGHT RADIAL; BG TOTAL HEMOGLOBIN 9.4 g/dL (12.0-18.0); BG VENT MODE VENT - AC
[2020-12-03] MEDS: MEROPENEM 500MG in NORMAL SALINE 50ML IV SCH (12:48)
[2020-12-03] MEDS: METOCLOPRAMIDE HCL 10MG/2ML VIAL IV SCH ×2 (12:48→17:25)
[2020-12-03] MEDS: MIDODRINE HCL 5MG TABLET PO SCH ×2 (12:49→17:01)
[2020-12-03] MEDS: VASOPRESSIN 20 UNIT in SODIUM CHLORIDE 0.9% 99 ML IV PRN ×2 (14:01→23:07)
[2020-12-03] MEDS ORDERED: SODIUM BICARBONATE 8.4% 1 MEQ/ML 50ML SYR IV NR (17:02)
[2020-12-03 17:12] LABS: PROTHROMBIN TIME 60.7 sec (9.6-11.0)
[2020-12-03 17:17] LABS: INR 6.6
[2020-12-03] MEDS ORDERED: PHYTONADIONE 10MG/ML AMP SUBCUT NR (18:15)
[2020-12-03] MEDS: SODIUM BICARBONATE 100 MEQ in DEXT 10% WATER 1,000 ML IV SCH (21:35)
[2020-12-03] MEDS: THIAMINE HCL 500 MG in SODIUM CHLORIDE 0.9% 95 ML IV SCH (21:39)
[2020-12-04] VITALS (87 sets, daily range): BP systolic 79–156; BP diastolic 40–75
[2020-12-04] MEDS: BLOOD SUGAR DIAGNOSTIC STRIP TEST SCH ×6 (00:11→20:54)
[2020-12-04] MEDS: METOCLOPRAMIDE HCL 10MG/2ML VIAL IV SCH ×4 (00:16→17:37)
[2020-12-04 01:17] LABS: PLATELET ESTIMATE MARKEDLY DECREASED
[2020-12-04] MEDS: PHENYLEPHRINE 100 MG in DEXT 5% WATER 240 ML IV PRN ×3 (01:47→16:52)
[2020-12-04 04:44] LABS: HEMATOCRIT. 24.1 % (42.0-52.0); HEMOGLOBIN. 8.3 g/dL (14.0-18.0); MEAN CORPUSCULAR HEMOGLOBIN 33.8 pg (28.0-32.0); MEAN CORPUSCULAR VOLUME 98.5 fL (80.0-94.0); MEAN PLATELET VOLUME 9.5 fl (7.4-10.4); RED BLOOD CELL COUNT 2.45 mill/uL (4.7-6.1); RED CELL DISTRIBUTION WIDTH 18.9 % (11.6-14.6)
[2020-12-04 04:52] LABS: PLATELET 43 x1000/uL (130-400)
[2020-12-04 05:09] LABS: PROTHROMBIN TIME 43.3 sec (9.6-11.0)
[2020-12-04] MEDS: LACTULOSE 20G/30ML UDC PO SCH ×3 (06:19→22:07)
[2020-12-04] MEDS: VASOPRESSIN 20 UNIT in SODIUM CHLORIDE 0.9% 99 ML IV PRN ×3 (06:35→22:38)
[2020-12-04 06:53] LABS: INR 4.5
[2020-12-04 07:43] LABS: NUCLEATED RED BLOOD CELLS 50 /100 WBC
[2020-12-04 07:44] LABS: PLATELET ESTIMATE MARKEDLY DECREASED
[2020-12-04] MEDS ORDERED: ALBUMIN HUMAN 12.5GM/50ML (25%) IV ONE (08:00)
[2020-12-04] MEDS: SODIUM BICARBONATE 100 MEQ in DEXT 10% WATER 1,000 ML IV SCH ×2 (09:19→20:53)
[2020-12-04] MEDS: PANTOPRAZOLE SODIUM 40 MG/VIAL IV SCH ×2 (09:19→17:37)
[2020-12-04] MEDS: MIDODRINE HCL 5MG TABLET PO SCH ×3 (09:20→17:37)
[2020-12-04] MEDS: RIFAXIMIN 550 MG TABLET PO SCH ×2 (09:20→22:07)
[2020-12-04] MEDS: DEXTROSE 50% WATER 50ML SYRINGE IV PRN (09:21)
[2020-12-04] MEDS: NOREPINEPHRINE 32 MG in DEXT 5% WATER 218 ML IV PRN ×2 (10:53→17:36)
[2020-12-04] MEDS ORDERED: VANCOMYCIN 1 G PREMIX 200 ML IV SCH (11:00)
[2020-12-04] MEDS: MEROPENEM 500MG in NORMAL SALINE 50ML IV SCH (12:26)
[2020-12-04 12:52] LABS: BG CARBOXYHEMOGLOBIN 0.5 % (0.5-1.5); BG DEOXYHEMOGLOBIN 18.5 % (0.0-5.0); BG HCO3 ACT 22.4 mmol/L (22.0-26.0); BG METHEMOGLOBIN 0.2 % (0.0-1.5); BG OXYGEN SATURATION 81.4 % (92.0-98.5); BG OXYHEMOGLOBIN 80.8 % (94.0-97.0); BG PCO2 32.5 mmHg (35.0-45.0); BG PH 7.457 (7.350-7.450); BG PO2 46.2 mmHg (75.0-100.0); BG SAMPLE SITE RIGHT RADIAL; BG TOTAL HEMOGLOBIN 9.6 g/dL (12.0-18.0); BG VENT MODE VENT - AC
[2020-12-04 16:50] LABS: BG BASE EXCESS -0.6 mmol/L (-2.0-2.0); BG CARBOXYHEMOGLOBIN 0.4 % (0.5-1.5); BG DEOXYHEMOGLOBIN 11.2 % (0.0-5.0); BG HCO3 ACT 23.6 mmol/L (22.0-26.0); BG METHEMOGLOBIN 0.4 % (0.0-1.5); BG OXYGEN SATURATION 88.7 % (92.0-98.5); BG PCO2 36.5 mmHg (35.0-45.0); BG PH 7.428 (7.350-7.450); BG PO2 57.5 mmHg (75.0-100.0); BG SAMPLE SITE RIGHT RADIAL; BG TOTAL HEMOGLOBIN 9.4 g/dL (12.0-18.0); BG VENT MODE VENT - AC
[2020-12-05] VITALS (88 sets, daily range): BP systolic 87–140; BP diastolic 46–76
[2020-12-05] MEDS: METOCLOPRAMIDE HCL 10MG/2ML VIAL IV SCH ×5 (00:20→23:50)
[2020-12-05] MEDS: BLOOD SUGAR DIAGNOSTIC STRIP TEST SCH ×7 (00:20→23:51)
[2020-12-05] MEDS: NOREPINEPHRINE 32 MG in DEXT 5% WATER 218 ML IV PRN ×4 (00:21→20:48)
[2020-12-05] MEDS: PHENYLEPHRINE 100 MG in DEXT 5% WATER 240 ML IV PRN ×3 (00:21→15:12)
[2020-12-05 04:20] LABS: HEMATOCRIT. 27.7 % (42.0-52.0); HEMOGLOBIN. 9.3 g/dL (14.0-18.0); MEAN CORPUSCULAR HEMOGLOBIN 34.1 pg (28.0-32.0); MEAN CORPUSCULAR VOLUME 101.8 fL (80.0-94.0); MEAN PLATELET VOLUME 10.5 fl (7.4-10.4); RED BLOOD CELL COUNT 2.72 mill/uL (4.7-6.1); RED CELL DISTRIBUTION WIDTH 19.9 % (11.6-14.6)
[2020-12-05] MEDS: LACTULOSE 20G/30ML UDC PO SCH ×3 (06:46→23:51)
[2020-12-05] MEDS: VASOPRESSIN 20 UNIT in SODIUM CHLORIDE 0.9% 99 ML IV PRN ×3 (07:40→20:48)
[2020-12-05 08:18] LABS: PLATELET 38 x1000/uL (130-400)
[2020-12-05 08:44] LABS: PROTHROMBIN TIME 54.2 sec (9.6-11.0)
[2020-12-05 08:46] LABS: INR 5.8
[2020-12-05] MEDS: PANTOPRAZOLE SODIUM 40 MG/VIAL IV SCH ×2 (08:47→17:20)
[2020-12-05] MEDS: SODIUM BICARBONATE 100 MEQ in DEXT 10% WATER 1,000 ML IV SCH ×2 (08:47→20:47)
[2020-12-05] MEDS: RIFAXIMIN 550 MG TABLET PO SCH ×2 (08:47→23:51)
[2020-12-05] MEDS: MIDODRINE HCL 5MG TABLET PO SCH ×3 (08:48→17:20)
[2020-12-05] MEDS: DEXTROSE 50% WATER 50ML SYRINGE IV PRN ×4 (08:48→20:22)
[2020-12-05 08:54] LABS: BG BASE EXCESS 2.6 mmol/L (-2.0-2.0); BG CARBOXYHEMOGLOBIN 0.7 % (0.5-1.5); BG FRACTION INSPIRED OXYGEN 100; BG HCO3 ACT 27.3 mmol/L (22.0-26.0); BG METHEMOGLOBIN 0.4 % (0.0-1.5); BG OXYGEN SATURATION 91.9 % (92.0-98.5); BG OXYHEMOGLOBIN 90.9 % (94.0-97.0); BG PCO2 42.4 mmHg (35.0-45.0); BG PH 7.426 (7.350-7.450); BG PO2 64.2 mmHg (75.0-100.0); BG SAMPLE SITE RIGHT RADIAL; BG TOTAL HEMOGLOBIN 9.4 g/dL (12.0-18.0); BG TOTAL RESPIRATORY RATE 30 b/min; BG VENT MODE VENT - AC
[2020-12-05 12:13] LABS: NUCLEATED RED BLOOD CELLS 30 /100 WBC; PLATELET ESTIMATE MARKEDLY DECREASED
[2020-12-05] MEDS: MEROPENEM 500MG in NORMAL SALINE 50ML IV SCH (12:48)
[2020-12-05] MEDS: FENTANYL CITRATE/PF 2,500 MCG in SODIUM CHLORIDE 0.9% 200 ML IV PRN (18:12)
[2020-12-06] VITALS (81 sets, daily range): BP systolic 69–161; BP diastolic 27–117
[2020-12-06] MEDS: VASOPRESSIN 20 UNIT in SODIUM CHLORIDE 0.9% 99 ML IV PRN ×3 (01:57→20:29)
[2020-12-06] MEDS: NOREPINEPHRINE 32 MG in DEXT 5% WATER 218 ML IV PRN ×4 (03:51→23:00)
[2020-12-06] MEDS: DEXTROSE 50% WATER 50ML SYRINGE IV PRN ×6 (04:48→22:12)
[2020-12-06] MEDS: BLOOD SUGAR DIAGNOSTIC STRIP TEST SCH ×6 (04:48→18:16)
[2020-12-06 05:49] LABS: HEMATOCRIT. 26.3 % (42.0-52.0); HEMOGLOBIN. 8.9 g/dL (14.0-18.0); MEAN CORPUSCULAR HEMOGLOBIN 34.2 pg (28.0-32.0); RED BLOOD CELL COUNT 2.61 mill/uL (4.7-6.1); RED CELL DISTRIBUTION WIDTH 21.5 % (11.6-14.6)
[2020-12-06] MEDS: METOCLOPRAMIDE HCL 10MG/2ML VIAL IV SCH ×4 (05:56→23:33)
[2020-12-06] MEDS: LACTULOSE 20G/30ML UDC PO SCH ×3 (05:56→21:22)
[2020-12-06 06:56] LABS: PLATELET 30 x1000/uL (130-400)
[2020-12-06] MEDS: PHENYLEPHRINE 100 MG in DEXT 5% WATER 240 ML IV PRN ×3 (07:15→21:23)
[2020-12-06 07:37] LABS: PROTHROMBIN TIME 53.4 sec (9.6-11.0)
[2020-12-06 07:39] LABS: INR 5.6
[2020-12-06 08:00] LABS: NUCLEATED RED BLOOD CELLS 22 /100 WBC
[2020-12-06 08:06] LABS: PLATELET ESTIMATE MARKEDLY DECREASED
[2020-12-06 08:43] LABS: BG BASE EXCESS 5.9 mmol/L (-2.0-2.0); BG CARBOXYHEMOGLOBIN 1.1 % (0.5-1.5); BG DEOXYHEMOGLOBIN 12.4 % (0.0-5.0); BG FRACTION INSPIRED OXYGEN 100; BG HCO3 ACT 32.1 mmol/L (22.0-26.0); BG METHEMOGLOBIN 0.2 % (0.0-1.5); BG OXYGEN SATURATION 87.4 % (92.0-98.5); BG OXYHEMOGLOBIN 86.3 % (94.0-97.0); BG PCO2 55.3 mmHg (35.0-45.0); BG PH 7.382 (7.350-7.450); BG PO2 54.8 mmHg (75.0-100.0); BG SAMPLE SITE RIGHT RADIAL; BG TOTAL HEMOGLOBIN 10.4 g/dL (12.0-18.0); BG VENT MODE VENT - AC
[2020-12-06] MEDS: SODIUM BICARBONATE 100 MEQ in DEXT 10% WATER 1,000 ML IV SCH (08:52)
[2020-12-06] MEDS ORDERED: MIDODRINE HCL 5MG TABLET PO SCH ×2 (09:00)
[2020-12-06] MEDS: PANTOPRAZOLE SODIUM 40 MG/VIAL IV SCH ×2 (09:58→18:12)
[2020-12-06] MEDS: RIFAXIMIN 550 MG TABLET PO SCH ×2 (10:00→21:00)
[2020-12-06] MEDS ORDERED: ALBUMIN HUMAN 12.5GM/50ML (25%) IV NR ×2 (10:30→11:00)
[2020-12-06] MEDS ORDERED: VANCOMYCIN 500 MG PREMIX 100 ML IV NR (12:00)
[2020-12-06] MEDS: DEXT 10% WATER 1,000 ML IV SCH (12:19)
[2020-12-06] MEDS: MEROPENEM 500MG in NORMAL SALINE 50ML IV SCH (12:25)
[2020-12-06] MEDS ORDERED: ALBUMIN HUMAN 25GM/100ML (25%) IV NR (13:00)
[2020-12-06] MEDS ORDERED: FENTANYL CITRATE/PF 2,500 MCG in SODIUM CHLORIDE 0.9% 200 ML IV PRN (13:01)
[2020-12-06] MEDS: MIDODRINE HCL 5MG TABLET PO SCH ×2 (13:12→18:13)
[2020-12-06] MEDS ORDERED: PHYTONADIONE 10MG/ML AMP SUBCUT NR (13:30)
[2020-12-06] MEDS: CALCIUM 1250MG TABLET (500MG ELEMENTAL CALCIUM) GT SCH (16:06)
[2020-12-06] MEDS ORDERED: CALCIUM CHLORIDE 2,000 MG in DEXT 5% WATER 80 ML IV NR (20:30)
[2020-12-07] VITALS (75 sets, daily range): BP systolic 69–163; BP diastolic 30–81
[2020-12-07] MEDS: DEXTROSE 50% WATER 50ML SYRINGE IV PRN ×7 (00:45→21:11)
[2020-12-07] MEDS: BLOOD SUGAR DIAGNOSTIC STRIP TEST SCH ×10 (02:00→17:52)
[2020-12-07] MEDS: VASOPRESSIN 20 UNIT in SODIUM CHLORIDE 0.9% 99 ML IV PRN ×3 (04:30→17:33)
[2020-12-07] MEDS: PHENYLEPHRINE 100 MG in DEXT 5% WATER 240 ML IV PRN ×3 (04:30→17:32)
[2020-12-07] MEDS: NOREPINEPHRINE 32 MG in DEXT 5% WATER 218 ML IV PRN ×4 (04:30→21:12)
[2020-12-07 06:00] LABS: HEMATOCRIT. 27.8 % (42.0-52.0); HEMOGLOBIN. 9.4 g/dL (14.0-18.0); MEAN CORPUSCULAR HEMOGLOBIN 34.4 pg (28.0-32.0); MEAN CORPUSCULAR VOLUME 101.4 fL (80.0-94.0); MEAN PLATELET VOLUME 9.2 fl (7.4-10.4); PLATELET 62 x1000/uL (130-400); RED BLOOD CELL COUNT 2.74 mill/uL (4.7-6.1); RED CELL DISTRIBUTION WIDTH 20.7 % (11.6-14.6)
[2020-12-07] MEDS: METOCLOPRAMIDE HCL 10MG/2ML VIAL IV SCH ×3 (06:00→17:42)
[2020-12-07] MEDS: LACTULOSE 20G/30ML UDC PO SCH ×3 (06:00→21:10)
[2020-12-07 07:08] LABS: PROTHROMBIN TIME 50.6 sec (9.6-11.0)
[2020-12-07 07:11] LABS: INR 5.4
[2020-12-07 08:41] LABS: BG BASE EXCESS 2.3 mmol/L (-2.0-2.0); BG DEOXYHEMOGLOBIN 19.5 % (0.0-5.0); BG FRACTION INSPIRED OXYGEN 100; BG HCO3 ACT 28.3 mmol/L (22.0-26.0); BG METHEMOGLOBIN 0.3 % (0.0-1.5); BG OXYHEMOGLOBIN 78.2 % (94.0-97.0); BG PCO2 51.7 mmHg (35.0-45.0); BG PH 7.356 (7.350-7.450); BG PO2 46.6 mmHg (75.0-100.0); BG SAMPLE SITE RIGHT RADIAL; BG TOTAL HEMOGLOBIN 8.8 g/dL (12.0-18.0); BG VENT MODE VENT - AC
[2020-12-07] MEDS: RIFAXIMIN 550 MG TABLET PO SCH ×2 (09:51→21:11)
[2020-12-07] MEDS: CALCIUM 1250MG TABLET (500MG ELEMENTAL CALCIUM) GT SCH (09:51)
[2020-12-07] MEDS: MIDODRINE HCL 5MG TABLET PO SCH ×3 (09:51→17:45)
[2020-12-07] MEDS: PANTOPRAZOLE SODIUM 40 MG/VIAL IV SCH ×2 (09:51→17:42)
[2020-12-07] MEDS ORDERED: CALCIUM CHLORIDE 1GM/10ML SYR IV SCH (10:00)
[2020-12-07] MEDS ORDERED: CALCIUM CHLORIDE 1,000 MG in SODIUM CHLORIDE 0.9% 100 ML IV SCH (10:00)
[2020-12-07] MEDS ORDERED: HYDROCORTISONE SOD SUCCINATE 100 MG/2 ML VIAL IV SCH (10:10)
[2020-12-07] MEDS: EPINEPHRINE 10 MG in SODIUM CHLORIDE 0.9% 240 ML IV PRN ×4 (11:21→21:13)
[2020-12-07] MEDS: HYDROCORTISONE SOD SUCCINATE 100 MG/2 ML VIAL IV SCH ×2 (13:19→21:11)
[2020-12-07] MEDS: DEXT 10% WATER 1,000 ML IV SCH (13:22)
[2020-12-07 17:18] LABS: NUCLEATED RED BLOOD CELLS 11 /100 WBC; PLATELET ESTIMATE DECREASED
[2020-12-07] MEDS: DEXTROSE 20% WATER 500 ML IV SCH (17:59)
[2020-12-08] VITALS (102 sets, daily range): BP systolic 60–172; BP diastolic 41–90
[2020-12-08] MEDS: BLOOD SUGAR DIAGNOSTIC STRIP TEST SCH ×10 (00:25→18:19)
[2020-12-08] MEDS: METOCLOPRAMIDE HCL 10MG/2ML VIAL IV SCH ×4 (00:57→18:26)
[2020-12-08] MEDS: PHENYLEPHRINE 100 MG in DEXT 5% WATER 240 ML IV PRN ×3 (01:23→16:32)
[2020-12-08] MEDS: VASOPRESSIN 20 UNIT in SODIUM CHLORIDE 0.9% 99 ML IV PRN ×3 (01:24→22:37)
[2020-12-08] MEDS: DEXTROSE 50% WATER 50ML SYRINGE IV PRN ×5 (02:14→13:36)
[2020-12-08] MEDS: DEXTROSE 20% WATER 500 ML IV SCH ×3 (05:25→14:43)
[2020-12-08] MEDS: LACTULOSE 20G/30ML UDC PO SCH ×3 (05:43→21:42)
[2020-12-08] MEDS: HYDROCORTISONE SOD SUCCINATE 100 MG/2 ML VIAL IV SCH ×3 (05:43→21:42)
[2020-12-08 06:06] LABS: CHLORIDE 86 mEq/L (98-107)
[2020-12-08 06:11] LABS: HEMATOCRIT. 27.2 % (42.0-52.0); HEMOGLOBIN. 9.1 g/dL (14.0-18.0); MEAN CORPUSCULAR HEMOGLOBIN 33.9 pg (28.0-32.0); MEAN CORPUSCULAR VOLUME 101.2 fL (80.0-94.0); MEAN PLATELET VOLUME 8.9 fl (7.4-10.4); RED BLOOD CELL COUNT 2.69 mill/uL (4.7-6.1); RED CELL DISTRIBUTION WIDTH 22.1 % (11.6-14.6)
[2020-12-08 07:31] LABS: PROTHROMBIN TIME 72.2 sec (9.6-11.0)
[2020-12-08 07:40] LABS: INR 7.9
[2020-12-08] MEDS: NOREPINEPHRINE 32 MG in DEXT 5% WATER 218 ML IV PRN ×4 (08:07→22:37)
[2020-12-08 08:13] LABS: PLATELET 41 x1000/uL (130-400)
[2020-12-08 08:23] LABS: BG BASE EXCESS -2.5 mmol/L (-2.0-2.0); BG CARBOXYHEMOGLOBIN 0.9 % (0.5-1.5); BG DEOXYHEMOGLOBIN 0.8 % (0.0-5.0); BG FRACTION INSPIRED OXYGEN 100; BG HCO3 ACT 22.3 mmol/L (22.0-26.0); BG METHEMOGLOBIN 0.6 % (0.0-1.5); BG OXYGEN SATURATION 99.2 % (92.0-98.5); BG OXYHEMOGLOBIN 97.7 % (94.0-97.0); BG PCO2 38.3 mmHg (35.0-45.0); BG PH 7.382 (7.350-7.450); BG PO2 148.4 mmHg (75.0-100.0); BG SAMPLE SITE LEFT RADIAL; BG TOTAL HEMOGLOBIN 9.9 g/dL (12.0-18.0); BG VENT MODE VENT - AC
[2020-12-08] MEDS: PANTOPRAZOLE SODIUM 40 MG/VIAL IV SCH ×2 (08:42→18:26)
[2020-12-08] MEDS: CALCIUM 1250MG TABLET (500MG ELEMENTAL CALCIUM) GT SCH (08:42)
[2020-12-08] MEDS: MIDODRINE HCL 5MG TABLET PO SCH ×3 (08:43→18:26)
[2020-12-08 12:17] LABS: PHOSPHORUS 6.3 mg/dL (2.5-4.9)
[2020-12-08] MEDS: MEROPENEM 500 MG in SODIUM CHLORIDE 0.9% 50 ML IV SCH (13:14)
[2020-12-08 13:38] LABS: NUCLEATED RED BLOOD CELLS 9 /100 WBC; PLATELET ESTIMATE MARKEDLY DECREASED
[2020-12-08] MEDS ORDERED: DEXTROSE 50% WATER 50ML SYRINGE IV ONE (13:45)
[2020-12-08] MEDS ORDERED: DEXT 10% WATER 1,000 ML IV SCH (14:00)
[2020-12-08] MEDS ORDERED: MAGNESIUM 4 G PREMIX 100 ML IV SCH (14:00)
[2020-12-08] MEDS ORDERED: VANCOMYCIN 1 G PREMIX 200 ML IV NR (17:00)
[2020-12-08] MEDS: EPINEPHRINE 10 MG in SODIUM CHLORIDE 0.9% 240 ML IV PRN ×2 (18:08→23:11)
[2020-12-08] MEDS ORDERED: PHYTONADIONE 10MG/ML AMP SUBCUT SCH (21:00)
[2020-12-08] MEDS: TOTAL PARENTERAL NUTRITION 1,700 ML IV SCH (21:43)
[2020-12-09] VITALS (92 sets, daily range): BP systolic 53–123; BP diastolic 20–77
[2020-12-09] MEDS: PHENYLEPHRINE 100 MG in DEXT 5% WATER 240 ML IV PRN ×4 (00:09→21:54)
[2020-12-09] MEDS: METOCLOPRAMIDE HCL 10MG/2ML VIAL IV SCH ×4 (00:17→17:46)
[2020-12-09] MEDS: BLOOD SUGAR DIAGNOSTIC STRIP TEST SCH ×10 (00:17→18:09)
[2020-12-09] MEDS: HYDROCORTISONE SOD SUCCINATE 100 MG/2 ML VIAL IV SCH ×3 (05:05→21:55)
[2020-12-09] MEDS: LACTULOSE 20G/30ML UDC PO SCH ×3 (05:06→21:55)
[2020-12-09] MEDS: VASOPRESSIN 20 UNIT in SODIUM CHLORIDE 0.9% 99 ML IV PRN ×2 (07:57→17:10)
[2020-12-09] MEDS: EPINEPHRINE 10 MG in SODIUM CHLORIDE 0.9% 240 ML IV PRN ×5 (07:58→23:13)
[2020-12-09] MEDS: MIDODRINE HCL 5MG TABLET PO SCH ×3 (09:02→17:46)
[2020-12-09] MEDS: CALCIUM 1250MG TABLET (500MG ELEMENTAL CALCIUM) GT SCH (09:02)
[2020-12-09] MEDS: PANTOPRAZOLE SODIUM 40 MG/VIAL IV SCH ×2 (09:02→17:45)
[2020-12-09] MEDS: NOREPINEPHRINE 32 MG in DEXT 5% WATER 218 ML IV PRN ×3 (10:38→22:00)
[2020-12-09 11:24] LABS: HEMATOCRIT. 22.1 % (42.0-52.0); HEMOGLOBIN. 7.2 g/dL (14.0-18.0); MEAN CORPUSCULAR HEMOGLOBIN 34.9 pg (28.0-32.0); MEAN CORPUSCULAR VOLUME 106.5 fL (80.0-94.0); MEAN PLATELET VOLUME 11.2 fl (7.4-10.4); RED BLOOD CELL COUNT 2.08 mill/uL (4.7-6.1); RED CELL DISTRIBUTION WIDTH 21.1 % (11.6-14.6)
[2020-12-09 11:29] LABS: BG BASE EXCESS -7.8 mmol/L (-2.0-2.0); BG CARBOXYHEMOGLOBIN 1.5 % (0.5-1.5); BG DEOXYHEMOGLOBIN 2.5 % (0.0-5.0); BG FRACTION INSPIRED OXYGEN 100; BG HCO3 ACT 19.9 mmol/L (22.0-26.0); BG METHEMOGLOBIN 0.3 % (0.0-1.5); BG OXYGEN SATURATION 97.5 % (92.0-98.5); BG OXYHEMOGLOBIN 95.7 % (94.0-97.0); BG PCO2 53.2 mmHg (35.0-45.0); BG PH 7.191 (7.350-7.450); BG PO2 116.8 mmHg (75.0-100.0); BG SAMPLE SITE RIGHT RADIAL; BG TOTAL HEMOGLOBIN 7.6 g/dL (12.0-18.0); BG TOTAL RESPIRATORY RATE 35 b/min; BG VENT MODE VENT - AC
[2020-12-09 11:39] LABS: PLATELET 30 x1000/uL (130-400)
[2020-12-09 12:04] LABS: PROTHROMBIN TIME > 100.0 sec (9.6-11.0)
[2020-12-09 12:07] LABS: INR > 10.0
[2020-12-09] MEDS: MEROPENEM 500 MG in SODIUM CHLORIDE 0.9% 50 ML IV SCH (13:43)
[2020-12-09 14:35] LABS: NUCLEATED RED BLOOD CELLS 15 /100 WBC; PLATELET ESTIMATE MARKEDLY DECREASED
[2020-12-09] MEDS: TOTAL PARENTERAL NUTRITION 1,700 ML IV SCH (21:30)
[2020-12-10] VITALS (20 sets, daily range): BP systolic 68–94; BP diastolic 31–59
[2020-12-10] MEDS: BLOOD SUGAR DIAGNOSTIC STRIP TEST SCH ×3 (00:29→04:00)
[2020-12-10] MEDS: METOCLOPRAMIDE HCL 10MG/2ML VIAL IV SCH (00:34)
[2020-12-10] MEDS: DEXTROSE 50% WATER 50ML SYRINGE IV PRN ×4 (00:35→05:05)
[2020-12-10] MEDS: EPINEPHRINE 10 MG in SODIUM CHLORIDE 0.9% 240 ML IV PRN ×3 (01:09→04:45)
[2020-12-10] MEDS: VASOPRESSIN 20 UNIT in SODIUM CHLORIDE 0.9% 99 ML IV PRN (03:18)
[2020-12-10] MEDS: NOREPINEPHRINE 32 MG in DEXT 5% WATER 218 ML IV PRN (03:34)
== END 2020-12-10 06:24 | DRG 870 ==
LOC: ER 16:27 → EDBEDREQSVC 18:38 → EDBEDREQ 18:38 → EDBEDREQTM 18:38 → MICUSO 19:54 → EDBEDREQTM 19:58 → EDBEDREQ 19:58 → CVICU 12-01 03:18
PROVIDERS: ADMIT Internal Medicine; ATTEND Internal Medicine
PROC: 5A1955Z Respiratory Ventilation, Greater than 96 Consecutive Hours (ICD-10-PCS; 2020-11-30)
PROC: 30233N1 Transfusion of Nonautologous Red Blood Cells into Peripheral Vein, Percutaneous Approach (ICD-10-PCS; 2020-11-30)
PROC: 0BH17EZ Insertion of Endotracheal Airway into Trachea, Via Natural or Artificial Opening (ICD-10-PCS; 2020-11-30)
PROC: 02HV33Z Insertion of Infusion Device into Superior Vena Cava, Percutaneous Approach (ICD-10-PCS; 2020-11-30)
PROC: B548ZZA Ultrasonography of Superior Vena Cava, Guidance (ICD-10-PCS; 2020-11-30)
PROC: 5A1D70Z Performance of Urinary Filtration, Intermittent, Less than 6 Hours Per Day (ICD-10-PCS; 2020-11-30)
PROC: 30233K1 Transfusion of Nonautologous Frozen Plasma into Peripheral Vein, Percutaneous Approach (ICD-10-PCS; principal; 2020-12-01)
PROC: 5A12012 Performance of Cardiac Output, Single, Manual (ICD-10-PCS; 2020-12-01)
PROC: 0DJ08ZZ Inspection of Upper Intestinal Tract, Via Natural or Artificial Opening Endoscopic (ICD-10-PCS; 2020-12-01)
PROC: 06HY33Z Insertion of Infusion Device into Lower Vein, Percutaneous Approach (ICD-10-PCS; 2020-12-01)
PROC: 5A1D70Z Performance of Urinary Filtration, Intermittent, Less than 6 Hours Per Day (ICD-10-PCS; 2020-12-01)
PROC: 30233R1 Transfusion of Nonautologous Platelets into Peripheral Vein, Percutaneous Approach (ICD-10-PCS; 2020-12-03)
PROC: 4A10X4Z Monitoring of Central Nervous Electrical Activity, External Approach (ICD-10-PCS; 2020-12-09)
DX: A41.9 Sepsis, unspecified organism (principal); R65.21 Severe sepsis with septic shock; J80 Acute respiratory distress syndrome; I21.A1 Myocardial infarction type 2; G93.41 Metabolic encephalopathy; N17.0 Acute kidney failure with tubular necrosis; I85.11 Secondary esophageal varices with bleeding; N18.6 End stage renal disease; E44.0 Moderate protein-calorie malnutrition; I12.0 Hypertensive chronic kidney disease with stage 5 chronic kidney disease or end stage renal disease; K76.6 Portal hypertension; D68.9 Coagulation defect, unspecified; N39.0 Urinary tract infection, site not specified; E87.1 Hypo-osmolality and hyponatremia; Z68.41 Body mass index [BMI] 40.0-44.9, adult; Z66 Do not resuscitate; I46.9 Cardiac arrest, cause unspecified; K70.31 Alcoholic cirrhosis of liver with ascites; E87.5 Hyperkalemia; E87.70 Fluid overload, unspecified; F10.10 Alcohol abuse, uncomplicated; I35.0 Nonrheumatic aortic (valve) stenosis; L84 Corns and callosities; K31.89 Other diseases of stomach and duodenum; D69.6 Thrombocytopenia, unspecified; E16.2 Hypoglycemia, unspecified; E83.51 Hypocalcemia; Z20.822 Contact with and (suspected) exposure to COVID-19; D50.0 Iron deficiency anemia secondary to blood loss (chronic); L89.896 Pressure-induced deep tissue damage of other site; I73.9 Peripheral vascular disease, unspecified; S70.322A Blister (nonthermal), left thigh, initial encounter; S70.321A Blister (nonthermal), right thigh, initial encounter; S40.822A Blister (nonthermal) of left upper arm, initial encounter; S40.821A Blister (nonthermal) of right upper arm, initial encounter; X58.XXXA Exposure to other specified factors, initial encounter; K72.90 Hepatic failure, unspecified without coma; L89.816 Pressure-induced deep tissue damage of head; Z78.1 Physical restraint status; Z99.2 Dependence on renal dialysis; Z88.0 Allergy status to penicillin; Z79.2 Long term (current) use of antibiotics; Z79.899 Other long term (current) drug therapy; Y93.89 Activity, other specified; Y99.8 Other external cause status; Y92.89 Other specified places as the place of occurrence of the external cause
CPT/HCPCS: 31500; 36415; 36556; 36600; 71045; 74018; 76937; 80048; 80053; 80076; 80202; 80305; 80320; 81003; 82140; 82248; 82270; 82330; 82375; 82550; 82607; 82652; 82746; 82805; 82962; 83540; 83550; 83605; 83735; 83970; 84100; 84132; 84134; 84145; 84450; 84460; 84478; 84484; 85014; 85018; 85025; 85027; 85049; 85384; 86705; 86709; 86803; 86850; 86900; 86920; 86927; 87070; 87340; 87426; 93005; 93306; 93923; 94002; 94003; 94640; 95822; 99291; C1752; C9113; J0610; J1720; J1815; J1956; J2185; J2250; J2354; J2370; J2405; J2704; J2765; J3010; J3370; J3411; J3430; J3475; J3490; J7030; J7040; J7050; J7060; J7070; J7121; P9016; P9017; P9041; P9047; G0480; P9036